=== PATIENT | female | born 1955 | race African-American/Black ===

== ENCOUNTER 2016-07-25 09:07 | Emergency (ER) | payer MEDICAID ==
[~2016-07-25] VITALS: Ht 162.6 cm; Wt 102.3 kg
[~2016-07-25 09:07] MED LIST: ALEVE
[2016-07-25] MEDS ORDERED: BLOOD PRESSURE PO (09:19)
[2016-07-25 09:33] LABS: APPEARANCE,URINE TURBID (CLEAR); GLUCOSE, URINE (UA) NEGATIVE (NEGATIVE); KETONES,URINE NEGATIVE (NEGATIVE); LEUKOCYTE ESTERASE ,URINE LARGE (NEGATIVE); OCCULT BLOOD,URINE LARGE (NEGATIVE); PH,URINE 6.5 (5.0-8.0); PROTEIN,URINE POS 1+ (NEGATIVE)
[2016-07-25 09:53] LABS: RBC,URINE 51-100 /HPF (0-2); WBC,URINE 51-100 /HPF (0-5)
[2016-07-25 09:54] LABS: RENAL EPITHELIAL CELLS,URINE Rare /LPF (None Seen); SQUAMOUS EPITHELIAL CELL,UR Few /LPF (None Seen); TRANSITIONAL EPI CELLS,URINE Few /LPF (None Seen)
[2016-07-25] MEDS ORDERED: LIDOCAINE HCL/PF 1% 2 ML VIAL IM ONE (10:45)
[2016-07-25] MEDS ORDERED: CefTRIAXone SODIUM 1 GM/VIAL IM ONE (10:45)
[2016-07-25 10:59] VITALS: BP 133/71
== END 2016-07-25 11:00 | disposition home or self-care (01) ==
LOC: EMS 09:09
DX: N39.0 Urinary tract infection, site not specified (principal); F17.210 Nicotine dependence, cigarettes, uncomplicated; I10 Essential (primary) hypertension
CPT/HCPCS: 81001; 87086; 96372; 99284; J0696; J3490